=== PATIENT | male | born 1990 | race Caucasian/White ===

== ENCOUNTER 2019-08-26 08:12 | Outpatient (CLI) | payer OTHER ==
--- NOTE | 2019-08-26 10:50 | MRI Report ---
Reason: PAIN IN LT FOOT Procedure Date: 08/26/2019 Accession Number: [id number] / [id number] Procedure: MRI - Foot LT W/O CPT Code: Final Report FULL RESULT: EXAM: LEFT MIDFOOT MRI WITHOUT CONTRAST EXAM DATE: 08/26/2019 09:20 AM. CLINICAL HISTORY: PAIN IN LT FOOT. COMPARISON: None. TECHNIQUE: Multiplanar, multisequence T1-weighted and fluid-sensitive sequences of the midfoot without contrast. Other: None. FINDINGS: Bones: A homolateral Lisfranc fracture/dislocation is present. The first, second, and third metatarsal bases are subluxated slightly laterally in relation to their opposing cuneiforms, and there is slight dorsal subluxation of the fourth metatarsal base in relation to the cuboid. Marrow edema is present in each of the first through fourth metatarsal bases and there is also marrow edema in each of the cuneiforms as well as in the distal cuboid. There is a minimally displaced intra-articular fracture of the medial base of the fourth metatarsal extending to the fourth tarsometatarsal joint space best seen on series 401 image 8. No definite further fractures elsewhere though MRI can miss the types of tiny fractures which are often seen in the setting of Lisfranc injuries. Osseous structures elsewhere are normal. Ligaments: The interosseous Lisfranc ligament is amorphous, indistinct, and increased in signal as seen on series 501 images 13-17 consistent with at least partial tear. Tendons: The flexor and extensor tendons are unremarkable. Musculature: No edema or fatty atrophy. Other: No intermetatarsal bursitis. The subcutaneous tissues are unremarkable. IMPRESSION: 1. Homolateral Lisfranc fracture/dislocation involving each of the first through fourth tarsometatarsal joints with subtle subluxation present at each of these joints. There is also a mildly displaced intra-articular fracture of the fourth metatarsal base, extensive marrow edema is present at the opposing margins of each of the first through fourth tarsometatarsal joints, and the interosseous Lisfranc ligament is amorphous, indistinct, and increased in signal consistent with at least partial tear. RADIA
== END 2019-08-26 08:13 | disposition home or self-care (01) ==
LOC: DI 08:12
PROVIDERS: ATTEND General Practice
DX: S93.325A Dislocation of tarsometatarsal joint of left foot, initial encounter (principal); S92.342A Displaced fracture of fourth metatarsal bone, left foot, initial encounter for closed fracture

== ENCOUNTER 2019-09-29 06:58 | Day surgery (SDC) | payer OTHER ==
[2019-09-29] MEDS ORDERED: VANCOMYCIN 1 GM VIAL ONE (07:15)
[2019-09-29] MEDS ORDERED: CEFAZOLIN SODIUM IN 0.9 % NACL 2 GM/100 ML BAG IV ONE (07:15)
[2019-09-29] MEDS ORDERED: SODIUM CHLORIDE FLUSH 0.9% 10 ML SYRINGE ONE (07:20)
[2019-09-29] MEDS ORDERED: LACTATED RINGERS 1,000 ML IV ONE ×4 (07:25→16:33)
--- NOTE | 2019-09-29 08:14 | ANESTHESIA ---
Pre-Anesthesia VS, & Labs - Diagnosis left lisfranc dislocation - Procedure left midfoot fusion Vital Signs: Temp Pulse Resp BP Pulse Ox 36.5 C 72 16 138/78 H 96 09/29/19 07:26 09/29/19 07:26 09/29/19 07:26 09/29/19 07:26 09/29/19 07:26 Height 6 ft Weight (kg) 104.8 kg - NPO >8 hours Home Medications and Allergies Home Medications: Ambulatory Orders No Known Home Medications 09/15/19 No Known Home Medications 09/15/19 Allergies/Adverse Reactions: Allergies Allergy/AdvReac Type Severity Reaction Status Date / Time No Known Drug Allergies Allergy Verified 09/29/19 07:35 Anes History & Medical History - Anesthetic History Anesthesia Complications: reports: No previous complications - Medical History Cardiovascular: reports: None Pulmonary: reports: None Gastrointestinal: reports: None Urinary: reports: None Musculoskeletal: reports: Other Endocrine/Autoimmune: reports: None Skin: reports: None Smoking Status: Never smoker - Surgical History Orthopedic: Arthroscopic surgery (knee scopes bilateral) Exam General: Alert Dental: WNL Mouth Opening: Greater than 4 Fingerbreadths Mallampati classification: I Respiratory: Lungs clear Cardiovascular: Regular rate, Normal S1, Normal S2 Plan Anesthesia Type: General, Popliteal Block Consent for Procedure(s) Verified and Reviewed: Yes Code Status: Attempt Resuscitation ASA classification: 1-Healthy patient Is this case an emergency?: No
[2019-09-29] MEDS ORDERED: CELECOXIB 100 MG CAPSULE PO ONE (08:43)
[2019-09-29] MEDS ORDERED: GABAPENTIN 400 MG CAPSULE ONE (08:43)
[2019-09-29] MEDS ORDERED: ACETAMINOPHEN 500 MG TABLET PO ONE (08:45)
[2019-09-29] MEDS ORDERED: BUPIVACAINE 0.25% PF 30 ML VIAL ONE (09:38)
[2019-09-29] MEDS ORDERED: ONDANSETRON 4 MG/2 ML VIAL IVP ONE (10:25)
[2019-09-29] MEDS ORDERED: fentaNYL 100 MCG/2 ML VIAL IVP ONE (10:25)
[2019-09-29] MEDS ORDERED: HYDROmorphone 1 MG/ML CARPUJECT IVP ONE (10:25)
[2019-09-29] MEDS ORDERED: DEXAMETHASONE 4 MG/ML VIAL IVP ONE (10:25)
[2019-09-29] MEDS ORDERED: LIDOCAINE-MPF 2% 5 ML VIAL IM ONE (10:25)
[2019-09-29] MEDS ORDERED: MIDAZOLAM 2 MG/2 ML VIAL IVP ONE (10:25)
[2019-09-29] MEDS ORDERED: PROPOFOL 200 MG/20 ML VIAL IVP ONE (10:25)
[2019-09-29] MEDS ORDERED: BUPIVACAINE 0.25% PF 30 ML VIAL SUBQ ONE (11:08)
[2019-09-29] MEDS ORDERED: ONDANSETRON 4 MG/2 ML VIAL IVP PRN (16:30)
[2019-09-29] MEDS ORDERED: oxyCODONE 5 MG TABLET PO PRN (16:30)
--- NOTE | 2019-09-29 16:35 | OPERATIVE REPORT ---
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 - Procedure Note Primary Surgeon: DEE NORRIS Secondary Surgeon: HANG CRYSTAL Anesthesia Technique: General ET tube, Regional block Estimated Blood Loss (mL): 100 - Other Other Information/Narrative: Date of Procedure: 29 September 2029 Planned Procedure: Left midfoot fusion Pre-op diagnosis: Left chronic lisfranc fracture dislocation Procedure performed: Left 1st and 2nd TMTJ fusion, left medial intercunieform joint fusion, proximal tibia autograft harvest Post-op diagnosis: 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 IMPLANTS: Synthes 3.5mm cortex screws x 5 Indications for surgery: 28-year-old male who sustained injury to the left midfoot while playing noodls in the summer 2018. [place], which were negative for injury, and he was treated as a sprain. He continued to have foot pain with ambulation, and an MRI was obtained demonstrating a Lisfranc fracture dislocation of the left midfoot. He was referred to orthopedics. After review of the x-rays, MRI, and obtaining a CT scan, we discussed the treatment recommendations for this primary ligamentous injury. The recommendation was to proceed with a primary arthrodesis to treat his Lisfranc fracture dislocation. We discussed fusing the first and second TMTJ's, possibly the third, and possible open reduction K wire fixation of the fourth and fifth should that be required. The rationale for this was explained. The risks, benefits, and alternatives were discussed. Risks include persistent pain, bleeding, infection, damage to nearby structures including nerves and blood vessels, failure of fusion, hardware complications and breakage, lack of symptom relief, need for further surgery, DVT, PE, stroke, and . Written consent was obtained. Procedure Details: The patient was met in the pre-operative hold area. The patient verified the surgical site as the left foot. We discussed harvesting bone marrow autograft from the proximal tibia, and this was added to the consent. He and I both initialed the consent. The proximal tibia and left foot were then initialed per our standard protocol using a surgical marker. The patient then met with anesthesia and was brought back to the operating room. The patient was placed supine on the operating table. A general anesthetic was administered and airway was placed. A well-padded tourniquet was placed on the left thigh. Following tourniquet placement, the left lower extremity was then prepped and draped in the usual sterile fashion. A surgical timeout was performed, verifying the correct patient, the correct procedure and surgical site. We confirmed that perioperative antibiotics had been administered. Everyone agreed to proceed. Fluoroscopy was used to plan the incisions between the first and second metatarsal centered about the TMTJ and the lateral incision, in line with the fourth metatarsal should it be required. The Escmarch was used to exsanguinate the left lower extremity and the tourniquet was raised. An approximately 4 inch longitudinal incision was made through the skin only using a 15 blade at the previously marked medial incision. Once the skin had been incised, tenotomy scissors were used to gently dissect through the subcutaneous tissue taking care to identify and preserve crossing branches of the superficial nerves. These were identified and retracted from the field. The EHL tendon was identified and the tendon sheath was entered sharply on its dorsal surface. The EHL was then retracted medially and the EHB was retracted laterally. A deep 15 blade was then used to make a longitudinal incision through the floor of the EHL sheath directly onto the dorsal surface of the first metatarsal. Subperiosteal elevation was used medially and laterally to raise a flap off the dorsal surface of the first metatarsal, the first MTPJ, and the medial cuneiform. The first MTPJ was grossly unstable. We continued our dissection laterally, subperiosteally exposing the proximal second metatarsal, second MTPJ, and middle cuneiform; this joint was also grossly unstable. There was gross instability between the medial and middle cuneiform. We then used a combination of curettes and osteotomes and rongeurs to prepare the medial intercuneiform joint, first and second TMT joints for planned fusion. All cartilage was removed down to the subchondral bone. We took care to make sure that we reached the plantar aspect of the joints. We then provisionally clamped across the joints to ensure that they were able to be reduced for fusion. Once satisfied that we are able to reduce the articulations, we turned our attention to the proximal tibia to harvest bone graft. An approximately 3 cm incision was made 1 cm lateral and 1 cm distal to the tibial tubercle. The superficial soft tissues were dissected through exposing the fascia of the anterior compartment. This was sharply incised, and the muscle was elevated off the anterolateral surface of the tibia. Once the anterolateral tibia was exposed, an osteotome was used to create a 3 sided hinged window in the cortical bone, and this was opened exposing the marrow cavity. A combination of curettes and pituitary rongeurs were used to harvest bone graft through the cortical window. Once adequate graft had been obtained,, the cortical window was closed, the wound was irrigated, the deep fascia was closed using interrupted 0 Vicryl. A wet Ray-Dorian was then packed into the wound. Provisional fixation was then released, and the subchondral bone of the intercuneiform joint was prepared for fusion by fenestration using a 2.5 mm drill bit to brooks the subchondral bone. This was repeated in the first and second TMT joints. All joints were then gently filled with the autograft bone marrow, and we began our fusion. Due to time, the tourniquet was let down and pressure was held on the wound for approximately 5 minutes. We began with the intercuneiform joint, this was clamped to compress it, and then fixed in place using a 3.5 mm cortical screw. The clamp was then released with good stability of the joint. A clamp was then placed from the medial side of the medial cuneiform to the lateral side of the second metatarsal, compressing along the line of the [place] Lisfranc ligament. The first TMT joint was then reduced, and position was verified using fluoroscopy. A 3.5 mm cortex screw was placed in a lag by technique manner from distal to proximal, with good purchase into the medial cuneiform and compression of the joint as the screw was tightened, we created a small bone trough in the dorsal surface of the metatarsal to recess the head, as well as countersinking the screw prior to placement. We then placed a proximal to distal crossing screw from the dorsal medial cuneiform into the proximal first metatarsal, this was a 3.5 mm cortex group. Now that the first TMT joint had been stabilized, we drilled and placed a 3.5 mm cortex screw from the medial border of the medial cuneiform into the second metatarsal, re-creating the Lisfranc ligament. This stabilized the second metatarsal nicely. The Lisfranc clamp was then removed. We then turned our attention to the second TMT joint. We created a second window in the soft tissue, overlying the shaft of the second metatarsal, taking care to avoid the neurovascular bundle. Position was confirmed on fluoroscopy, and the proposed track was drilled, and a 3.5 mm cortex screw was placed. Screw position verified on fluoroscopy, and it was felt that the screw from the second metatarsal to the middle cuneiform was too long, so this was exchanged. Position was then reconfirmed on fluoroscopy, with satisfactory screw length. Fluoroscopy was then used to examine the third fourth and fifth TMT joints, these were stressed, and found to be stable to manual stress, therefore the decision was made to not fuse the third TMT joint nor pin the fourth and fifth. Final fluoroscopic images were taken. The wound was gently irrigated, taking care not to washout the bone graft, and then the remainder of the bone graft was placed dorsally into the joints to be fused, and any residual voids were filled using DBX flowable bone putty. We began our closure using 0 Vicryl to close the deep periosteal flaps over the first metatarsal. 0 Vicryl was then used to close the dorsal surface of the EHL sheath over the tendon. The more lateral window overlying the shaft the second metatarsal was also closed using 0 Vicryl. The deep superficial tissues were closed using several interrupted 2-0 Vicryls, and then the skin was closed using interrupted 3-0 nylon and Allgower-Donati fashion, all sutures were simultaneously tensioned, and then sequentially tied. The proximal tibial incision was again irrigated, and the deep subcutaneous tissue was closed using 0 Vicryl, interrupted 2-0 Vicryl was used for the superficial subcutaneous tissue followed by a running 3-0 Monocryl in subcuticular fashion. All the incisions were cleaned, Mastisol and Steri-Strips were applied to the proximal tibial incision followed by Xeroform. Xeroform was applied to the foot incision. 4 x 4 gauze and a Tegaderm was applied to the proximal tibia. 4 x 4 gauze followed by a compressive Hazel cotton splint was applied to the foot and leg. The drapes were taken down, the patient was then turned over to anesthesia for performance of a postoperative popliteal nerve block. Following the nerve block the patient was transferred to the PACU in stable condition. Postoperative plan: 1. Discharge home from the same day surgery facility once the patient has met discharge criteria. 2. Return to clinic on Thursday for post-op check. Sutures out at 2.5-3 weeks post-op. 3. NWB for 6-12 weeks
[2019-09-29] MEDS ORDERED: LORazepam 2 MG/ML VIAL ONE (17:01)
[2019-09-29] MEDS: fentaNYL 100 MCG/2 ML VIAL ONE ×3 (17:12→17:38)
[2019-09-29 19:04] VITALS: BP 155/81
--- NOTE | 2019-10-03 08:29 | XRAY Report ---
Reason: LEFT MIDFOOT FUSION Procedure Date: 09/29/2019 Accession Number: [id number] / [id number] Procedure: [place] - OR C-Arm Procedure CPT Code: Final Report FULL RESULT: EXAM: FLUOROSCOPIC GUIDANCE EXAM DATE: 09/29/2019 03:38 PM. CLINICAL HISTORY: Left midfoot fusion. COMPARISON: FOOT LT W/O 08/26/2019 8:59 AM. FINDINGS: IMPRESSION: Fluoroscopic guidance provided for intraoperative evaluation of left midfoot fusion. Total fluoroscopy time: 1.5 minutes. Number of images: 13. RADIA
== END 2019-09-29 19:26 | disposition home or self-care (01) ==
LOC: SDS 06:58 → MS2 17:31 → SDS 19:26
PROVIDERS: ATTEND Orthopaedic Surgery
PROC: 0SGL04Z Fusion of Left Tarsometatarsal Joint with Internal Fixation Device, Open Approach (ICD-10-PCS; 2019-09-29)
PROC: 0QBH0ZZ Excision of Left Tibia, Open Approach (ICD-10-PCS; 2019-09-29)
PROC: 0SGL07Z Fusion of Left Tarsometatarsal Joint with Autologous Tissue Substitute, Open Approach (ICD-10-PCS; principal; 2019-09-29 08:45)
DX: S92.342G Displaced fracture of fourth metatarsal bone, left foot, subsequent encounter for fracture with delayed healing (principal); M25.375 Other instability, left foot; M25.372 Other instability, left ankle; Z86.14 Personal history of Methicillin resistant Staphylococcus aureus infection